=== PATIENT | female | born 1980 | race Caucasian/White ===

== ENCOUNTER 2020-10-22 12:10 | Emergency (ER) | payer SELFPAY ==
[~2020-10-22] VITALS: Ht 154.9 cm; Wt 53.9 kg
[2020-10-22 12:23] VITALS: BP 157/99
--- NOTE | 2020-10-22 12:36 | NUR ---
Patient presents for new possible seizure. Patient states she had a seizure 10 years ago and is on no medications. The patient states that she fell down walking down [address], unwitnessed, just aroused after some time on her own. The pateint denies loss of bowel or bladder at this time of suspected seizure. No oral trauma on exam.
--- NOTE | 2020-10-22 12:38 | NUR ---
Pt undressed and seizure pads in place.
[2020-10-22] MEDS ORDERED: AZITHROMYCIN 500 MG TABLET PO ONE (13:30)
[2020-10-22] MEDS ORDERED: CEFTRIAXONE 250 MG IM ONE (13:30)
[2020-10-22] MEDS ORDERED: AZITHROMYCIN 250 MG TABLET ONE (13:36)
[2020-10-22] MEDS ORDERED: CEFTRIAXONE 250 MG ONE (13:37)
[2020-10-22 13:51] LABS: CLUE CELLS NONE SEEN (NONE SEEN); WET PREP WBCS NONE SEEN (FEW)
== END 2020-10-22 14:02 | disposition home or self-care (01) ==
LOC: ED 13:07
DX: N89.8 Other specified noninflammatory disorders of vagina (principal); R56.9 Unspecified convulsions
CPT/HCPCS: 87210; 87491; 87591; 87808; 96372; 99283; J0696